=== PATIENT | female | born 1945 | race Caucasian/White ===

== ENCOUNTER 2025-01-03 13:59 | Emergency (ER) | payer OTHER, SELFPAY ==
--- NOTE | ~2025-01-03 | CT_ITS ---
CLINICAL HISTORY: Fall, left-sided chest pain, bruise, R O rib fract CT chest without contrast Comparison: None Findings: Lung suárez are clear without acute infiltrates. No significant mediastinal adenopathy. No significant free pleural fluid. Scattered old rib fractures are identified. No acute focal bony abnormalities. Small hiatal hernia noted. Impression: No acute processes This document has been electronically signed by: Shahab Solano MD on 01/03/2025 19:54:46
--- NOTE | ~2025-01-03 | XR_ITS ---
EXAMINATION: XR CHEST 2 VIEWS HISTORY: trauma COMPARISON: There are no prior studies for comparison. FINDINGS: PA and lateral views of the chest are submitted. The lungs are expanded and clear. There is no pleural effusion, pneumothorax, or pulmonary vascular congestion. The heart is normal in size. There is degenerative disc disease of the spine. There are surgical clips in the right upper quadrant. XR/XR chest 2V IMPRESSION: Clear lungs. Electronically signed by: Devendra Lo MD 01/03/2025 02:52 PM EDT
--- NOTE | ~2025-01-03 | CT_ITS ---
CLINICAL HISTORY: trauma, loss of dexteriry CT head without contrast Comparison: None Findings: No intra-axial mass, midline shift, hydrocephalus, or acute hemorrhage. Mild diffuse cerebral volume loss. Mild degree of patchy low-density within the periventricular and subcortical white matter. Chronic bilateral cerebellar infarcts. There is no sinus or mastoid fluid. The orbits are within normal limits. There is no acute fracture. IMPRESSION: 1. No acute intracranial findings. This document has been electronically signed by: Zainab Raines MD on 01/03/2025 17:38:28
[2025-01-03 14:08] VITALS: BP 137/63; PULSE 64; RESP 18; TEMP 36.9; O2SAT 98; BMI 22.9
--- NOTE | 2025-01-03 14:15 | ECG_ITS ---
Test Reason : pain Blood Pressure : */* mmHG Vent. Rate : 69 BPM Atrial Rate : 69 BPM P-R Int : 168 ms QRS Dur : 74 ms QT Int : 408 ms P-R-T Axes : 48 -18 15 degrees QTcB Int : 437 ms Normal sinus rhythm Normal ECG No previous ECGs available Referred By: Aj Ho Electronically Signed By: FRANK HERRERA MD
--- NOTE | 2025-01-03 14:18 | ED.GENADULT ---
HPI - General Adult General Chief complaint: Fall Stated complaint: fall Time Seen by Provider: 01/03/25 17:59 Source: patient Mode of arrival: ambulatory Limitations: no limitations History of Present Illness ED Provider: Dr. Miguel Artis HPI narrative: 79-year-old female with a history of stroke, hypertension, hyperlipidemia who presents emergency department for evaluation of injuries from a fall that occurred 2 days prior. The patient states she got up in the middle of the night to urinate. She states that she is uncoordinated since her stroke and she tripped and fell. She states she landed on her left chest but did not hit her head or pass out. She states she was able to get up and try to walk to the bathroom but fell a 2nd time and then was incontinent of urine. The patient states she did have a headache after the fall. She also noted she has new incoordination of her upper extremities since the fall. She states that she dropped her phone multiple times. She had difficulty tying her shoes and buttoning her pants. She states that she has been having a dull ache in her left chest since the fall. She states this area is bruised. The pain is worse if she pushes on her chest or twists but does not change with breathing. She denied shortness of breath or dyspnea on exertion. She denied any neck pain, weakness or numbness of her upper extremities. She denied fever, chills, nausea, vomiting, diarrhea, frequency, dysuria or urgency. Related Data Allergies Allergy/AdvReac Type Severity Reaction Status Date / Time amoxicillin Allergy Rash Verified 01/03/25 14:12 [facility] Social History Social History Smoked in Last 30 Days: No Use of substances other than those prescribed or required for medical reasons: No Physical Exam ED Vital Signs: Vital Signs - 24 hr 01/03/25 14:08 01/03/25 17:29 01/03/25 18:22 Temperature 98.4 F 97.9 F 98.0 F Pulse Rate 64 65 60 Respiratory Rate 18 13 16 Blood Pressure 137/63 153/60 H 134/59 L Pulse Oximetry 98 97 94 Oxygen Delivery Method Room Air Room Air Room Air BMI result Body Mass Index 22.9 Course Course Course Narrative: RME, this is a rapid medical exam performed by Srinivas Ho please refer to primary provider for complete H&P- 79-year-old female presents for evaluation after a fall and happened 2 days ago. Patient reports that she got up with urinary urgency and was trying to bellamy to the bathroom when she fell onto the ground. Again, this was 2 days ago in the morning. She denies hitting her head and denies headache. She complains of chest pain with bruising to her entire chest. She also reports that she has had a loss of dexterity in both of her hands since the fall. She has difficulty with intricate details including ?hooking my bra, putting an earrings, and tying my shoes. ? On exam, strength and neuro are intact, NIH stroke score of 0. Plan for EKG, labs, chest x-ray, in his CT scan of the brain. The patient is on aspirin but no anticoagulation Medical Decision Making Medical Decision Making MDM Narrative: 79-year-old female with a history of stroke, hypertension, hyperlipidemia who presents emergency department for evaluation of injuries from a fall that occurred 2 days prior. The patient states she got up in the middle of the night to urinate. She states that she is uncoordinated since her stroke and she tripped and fell. She states she landed on her left chest but did not hit her head or pass out. She states she was able to get up and try to walk to the bathroom but fell a 2nd time and then was incontinent of urine. The patient states she did have a headache after the fall. She also noted she has new incoordination of her upper extremities since the fall. She states that she dropped her phone multiple times. She had difficulty tying her shoes and buttoning her pants. She states that she has been having a dull ache in her left chest since the fall. She states this area is bruised. The pain is worse if she pushes on her chest or twists but does not change with breathing. She denied shortness of breath or dyspnea on exertion. She denied any neck pain, weakness or numbness of her upper extremities. She denied fever, chills, nausea, vomiting, diarrhea, frequency, dysuria or urgency. Vital signs were normal. Patient's neurologic exam was normal with good qcczrh-fi-noza-to-finger, normal rapid finger movement. Patient did have ecchymosis to her left anterior chest with tenderness with palpation of this area. Differential diagnosis: ?Includes but is not limited to skull fracture, intracranial bleed, stroke, concussion, chest wall contusion, rib fractures, rhabdomyolysis, electrolyte abnormalities, anemia Course: 18:59 My independent interpretation patient's laboratory evaluation is as follows: CBC was normal. Chloride elevated 115, bicarb low 20, anion gap low 11, BUN elevated 19 with a normal creatinine of 0.97. First troponin was elevated at 72.8, 3 hour repeat troponin was unchanged at 71.1. CT scan of the brain revealed no acute findings however the patient does have mild diffuse cerebellar volume loss with within the periventricular and subcortical white matter. She also has chronic bilateral cerebellar infarcts-these might explain the patient's fall since she may have balance difficulties but I am not sure if this explains her new upper extremity symptoms. Chest x-ray revealed no acute findings Given her left chest wall ecchymosis tenderness and chest pain concerned that the patient may have nondisplaced rib fractures therefore I did order a CT scan of the chest without IV contrast. I also added a CPK of the patient's labs to evaluate for possible rhabdomyolysis 21:42 CT chest revealed no acute fractures which is reassuring. CPK was not elevated which is reassuring. I did discuss this with the patient. The patient was given Tylenol 975 mg orally for pain. She was given printed and verbal instructions and discharged home. Admission/Observation Consideration of admission/observation: Escalation of care including admission/observation considered (Yes) Lab Data MDM Lab Attestation statement: I reviewed the patient's lab results. 01/03/25 14:24 01/03/25 14:24 Labs: Lab Results 01/03/25 01/03/25 Range/Units 14:24 17:41 WBC 6.4 (4.8-10.8) X10*3/uL RBC 4.42 (4.20-5.50) X10*6/uL Hgb 12.8 (12.0-16.0) g/dl Hct 37.8 (37.0-47.0) % MCV 85.5 (80.0-98.0) fL MCH 29.0 (27.0-33.0) pg MCHC 33.9 (31.0-35.0) g/dl RDW 13.0 (11.0-16.0) % Plt Count 211 (160-400) X10*3/uL MPV 9.7 (9.4-12.3) fL Immature Gran % (Auto) 0.3 (0.0-0.4) % Neut % (Auto) 66.2 (45-73) % Lymph % (Auto) 19.6 L (20-40) % Webster % (Auto) 11.0 (2-11) % Eos % (Auto) 2.3 (0-4) % Baso % (Auto) 0.6 (0-2) % Lymph # (Auto) 1.3 (1.2-4.9) X10*3/uL Webster # (Auto) 0.7 (0.1-1.2) X10*3/uL Eos # (Auto) 0.2 (0.0-0.4) X10*3/uL Baso # (Auto) 0.0 (0.0-0.2) X10*3/uL Abs Immat Gran (auto) 0.02 (0.00-0.03) X10*3/uL Absolute Neuts (auto) 4.2 (2.0-8.3) x10*3/uL Absolute Nucleated RBC 0.000 (0.0-0.012) X10*3/uL Nucleated RBC % (auto) 0.0 (0.0-0.2) /100WBC Sodium 142 (135-145) mmol/L Potassium 4.2 (3.3-5.1) mmol/L Chloride 115 H (96-108) mmol/L Carbon Dioxide 20 L (22-29) mmol/L Anion Gap 11 L (12-20) BUN 19 H (9-16) mg/dL Creatinine 0.97 (0.5-1.4) mg/dL Estim Creat Clear Calc 30.9 Estimated GFR 55 Random Glucose 88 (60-115) mg/dL Calcium 9.0 (8.4-10.2) mg/dL Total Bilirubin 0.6 (0.0-1.0) mg/dL AST 27 (5-31) U/L ALT 30 (0-31) U/L Alkaline Phosphatase 86 (39-117) U/L Total Creatine Kinase 108 (26-140) U/L Troponin I High Sens 72.8 H* 71.1 H* (<3.5-17.0) ng/L Total Protein 6.6 (6.5-8.0) g/dL Albumin 4.0 (3.5-5.0) g/dL Lipase 65 (8-78) U/L Independent Interpretation I performed an independent interpretation of an: EKG and Plain X-Ray Interpretation: My independent interpretation patient's 12 EKG done at 14:15 hours is as follows: Normal sinus rhythm with a rate of 69, normal MI interval, QRS duration QTC interval, no ST segment elevation, no ST segment depression, no PACs, no PVCs, no significant T-wave abnormalities. There is no old EKG for comparison My independent interpretation of the patient's chest x-ray is as follows: No acute findings, no pneumothorax, no hemothorax Radiology Impression Radiologist Impression: XR chest 2V IMPRESSION: Clear lungs. Electronically signed by: Devendra Lo MD 01/03/2025 02:[address] head without contrast Comparison: None Findings: No intra-axial mass, midline shift, hydrocephalus, or acute hemorrhage. Mild diffuse cerebral volume loss. Mild degree of patchy low-density within the periventricular and subcortical white matter. Chronic bilateral cerebellar infarcts. There is no sinus or mastoid fluid. The orbits are within normal limits. There is no acute fracture. IMPRESSION: 1. No acute intracranial findings. This document has been electronically signed by: Zainab Raines MD on 01/03/2025 17:38:28 CLINICAL HISTORY: Fall, left-sided chest pain, bruise, R O rib fract CT chest without contrast Comparison: None Findings: Lung suárez are clear without acute infiltrates. No significant mediastinal adenopathy. No significant free pleural fluid. Scattered old rib fractures are identified. No acute focal bony abnormalities. Small hiatal hernia noted. Impression: No acute processes This document has been electronically signed by: Shahab Solano MD on 01/03/2025 19:54:46 Chronic Conditions Patient?s care impacted by: Hypertension and Other (Hyperlipidemia) Discharge Plan Discharge Clinical Impression: Fall, Concussion, Contusion of left chest wall Patient Disposition: Home, Self-Care Instructions: Concussion (ED), Chest Contusion (ED) Additional Instructions: The CT scan of your brain did not reveal any bleeding of the brain or new injuries. You do have evidence of old strokes in your cerebellar regions (the balance mechanism of your brain) which may explain why you lost your balance and fell. The chest x-ray and CT scan were normal and there was no rib fractures, injuries to lung or other significant abnormalities noted by the radiologist which is reassuring. You did have an elevated high sensitive troponin I (this can sometimes be a marker of heart damage) however your repeat 2 hour troponin was unchanged suggesting that you did not have a heart attack or significant injury to your heart from your fall. Continue taking medications as prescribed. Take Tylenol (acetaminophen) 500 mg pills, 2 pills every 6 hours as needed for pain or fever. Follow-up with your doctor in 2 days. Please return to the emergency department if your symptoms get worse or if you develop any symptoms that are concerning to you. Print Language: Greek
[2025-01-03 14:28] LABS: MANUAL DIFF FLAG NO
[2025-01-03 14:31] LABS: Basophils Percent Auto 0.6 % (0-2); Eosinophils Absolute Auto 0.2 X10*3/uL (0.0-0.4); Eosinophils Percent Auto 2.3 % (0-4); Hematocrit 37.8 % (37.0-47.0); Hemoglobin 12.8 g/dl (12.0-16.0); Imm Gran Abs Auto 0.02 X10*3/uL (0.00-0.03); Imm Gran Pct Auto 0.3 % (0.0-0.4); Lymphocytes Absolute Auto 1.3 X10*3/uL (1.2-4.9); Lymphocytes Percent Auto 19.6 % (20-40); Mean Corpuscular HGB Conc 33.9 g/dl (31.0-35.0); Mean Corpuscular Volume 85.5 fL (80.0-98.0); Mean Platelet Volume 9.7 fL (9.4-12.3); Monocytes Absolute Auto 0.7 X10*3/uL (0.1-1.2); Neutrophils Absolute Auto 4.2 x10*3/uL (2.0-8.3); Neutrophils Percent Auto 66.2 % (45-73); Platelet Count 211 X10*3/uL (160-400); Red Blood Count 4.42 X10*6/uL (4.20-5.50); White Blood Count 6.4 X10*3/uL (4.8-10.8)
[2025-01-03 14:54] LABS: Alanine Aminotransferase 30 U/L (0-31); Anion Gap 11 (12-20); Aspartate Amino Transferase 27 U/L (5-31); Bilirubin Total 0.6 mg/dL (0.0-1.0); Blood Urea Nitrogen 19 mg/dL (9-16); Carbon Dioxide 20 mmol/L (22-29); Chloride 115 mmol/L (96-108); Creatinine Clr Calc Pharmacy 30.9; Estimated Glomerular Filt Rate 55; Glucose Random 88 mg/dL (60-115); Lipase 65 U/L (8-78); Potassium 4.2 mmol/L (3.3-5.1); Sodium 142 mmol/L (135-145); Total Protein 6.6 g/dL (6.5-8.0)
[2025-01-03 14:58] LABS: Troponin-I High Sensitivity 72.8 ng/L (<3.5-17.0)
[2025-01-03 15:52] LABS: Alkaline Phosphatase 86 U/L (39-117)
[2025-01-03 17:29] VITALS: BP 153/60; PULSE 65; RESP 13; TEMP 36.6; O2SAT 97
[2025-01-03 18:16] LABS: Troponin-I High Sensitivity 71.1 ng/L (<3.5-17.0)
[2025-01-03 18:22] VITALS: BP 134/59; PULSE 60; RESP 16; TEMP 36.7; O2SAT 94
[2025-01-03] MEDS: Acetaminophen 325 MG TABLET 975 MG PO (21:50)
[2025-01-03 21:56] VITALS: BP 146/80; PULSE 82; RESP 18; TEMP 37.2; O2SAT 96
--- OUTSIDE RECORDS SUMMARY | 2025-01-03 22:08 | XMS_ITS | Patient Health Record ---
Author Organization [facility] Address [address] [address] Care Team Providers Care General Activities Therapist Name Role Phone RANDALL MORGAN Primary Care Provider Unavailab Loli Uriostegui Unavailable [phone] Allergies No Known Allergies Reason For Referral No Information Medications Medication SIG (Take, Route, Frequency, Duration) Notes Start Date End Date Status Vitamin C 1000 MG 1 tablet Orally Once a day Active Biotin 2500 MCG 1 tablet Orally Twic e a day Active Escitalopram Oxalate 20 MG TAKE 1 TABLET BY MOUTH EVERY DAY Oral for 90 Active Turmeric 500 MG as directed Orally Active Vitamin D3 25 MCG (1000 UT) 1 tablet Ora lly Once a day Active Multi-Vitamin Daily - 1 tablet Orally On ce a day Active Vitamin B12 Active Lumigan Active Atorvastatin Calcium 80 MG 1 tablet Oral ly Once a day Active Aspirin Adult Low Dose 81 MG 1 tablet Orally Once a day Active hydrALAZINE HCl 10 MG TAKE 2 TABLETS BY MOUTH THREE TIMES DAILY WITH FOOD Oral for 90 Days Active Levoxyl 75 MCG 1 tablet in the morn ing on an empty stomach Orally Once a day for -3 days 12/22/2011 Active Gemtesa 75 MG 1 tablet Orally Once a day for 30 day(s) Active dilTIAZem HCl ER 240 MG Oral for 30 Days Active Social History Tobacco Use: Social History Observation Description Date Details (start date - stop date) Former Smoker NA - NA Tobacco use other than smoking: Question Answer Notes Are you an other tobacco user? No AUDIT-C (Standard) Question Answer Notes Did you have a drink contain ing alcohol in the past year? Yes How often did you have six o r more drinks on one occasion in the past year? Never (0 point) How many drinks did you have on a typical day when you were drinking in the past year? 1 or 2 drinks (0 point) How often did you have a dri nk containing alcohol in the past year? Monthly or less (1 point) Points 1 Interpretation Negative Tobacco Control (Standard) Question Answer Notes Tobacco use: Former smoker How long has it been since you last smoked? Grea ter than 10 years Problems Problem Type SNOMED Code ICD Code Onset Dates Problem Status W/U Status Risk Notes Problem Postmenopausal atrophic vaginitis (74040283) Postmenopausal atrophic vaginitis (N95.2) Active confirmed Problem Mastodynia (55567359) Mastodynia (N64.4) Active confirmed Problem Hypothyroidism (90705022) Unspecified hypothyroidism (244.9) Active confirmed Major Problem Hyperlipidemia (54077352) Other and unspecified hyperlipidemia (272.4) Active confirmed Major Problem Obesity (019183490) Obesity, unspecified (278.00) Active confirmed Major Problem Depressive disorder (04552052) Depressive disorder, not elsewhere classified (311) Active confirmed Major Problem Essential hypertension (41667394) Unspecified essential hypertension (401.9) Active confirmed Major Problem Esophageal reflux (176761988) Esophageal reflux (530.81) Active confirmed Major Problem Menopausal symptom (13235218) Symptomatic menopausal or female climacteric states (627.2) Active confirmed Major Vital Signs Temperature 97.9 degrees Fahrenheit 07/30/2024 Blood pressure diastolic 70 mm Hg 07/30/2024 Height 59 in 07/30/2024 Blood pressure systolic 140 mm Hg 07/30/2024 Weight 115 lbs 07/30/2024 BMI 23.22 kg/m2 07/30/2024 Encounters Encounter Location Date Provider Diagnosis [facility] [employer] Marco Vasco [facility] [place] [address] [place] [address] 07/30/2024 Loli Sanchez Encounter for gynecological examination (general) (routine) without abnormal findings Z01.419 ; Encounter for screening mammogram for malignant neoplasm of breast Z12.31 ; Other specified disorders of bone density and structure, multiple sites M85.89 and Postmenopausal atrophic vaginitis N95.2 [facility] [place] [address] [place] [address] 08/20/2024 Loli Sanchez Disorder of bone density and structure, unspecified M85.9 Assessments Encounter Date Diagnosis (ICD Code) Assessment Notes Treatment Notes Treatment Clinical Notes Section Notes 07/30/2024 Encounter for gynecological examination (general) (routine) without abnormal findings (ICD-10 - Z01.419) NO MORE PAP TESTS. 08/20/2024 Disorder of bone density and structure, unspecified (ICD-10 - M85.9) 07/30/2024 Encounter for screening mammogram for malignant neoplasm of breast (ICD-10 - Z12.31) REGULAR MAMMOGRAMS AND SBE'S WERE RECOMMENDED. 07/30/2024 Other specified disorders of bone density and structure, multiple sites (ICD-10 - M85.89) DISCUSSED HER LAST BMD RESULTS AND OSTEOPENIA AND ITS IMPACT ON HER HEALTH. ADEQUATE CALCIUM AND VIT D. WEIGHT BEARING EXERCISES. REPEAT BMD IN 2023. 07/30/2024 Postmenopausal atrophic vaginitis (ICD-10 - N95.2) DISCUSSED FINDINGS, DX AND TX OPTIONS. PAT IS ASYMPTOMATIC. Plan Of Treatment Pending Test Test Name Order Date MAMMOGRAM, SCREENING 05/05/2021 MAMMOGRAM, SCREENING 05/06/2022 MAMMOGRAM, SCREENING 07/30/2024 MAMMOGRAM, SCREENING 07/21/2023 MAMMOGRAM, SCREENING 09/01/2015 THIN PREP,HPV,SOTERO IF HPV+ (>29YR)(SCRN) 09/09/2017 BONE DENSITY 05/06/2022 BONE DENSITY 07/21/2023 BONE DENSITY 07/30/2024 MM Digital Mammo Screening 04/21/2023 MM Digital Mammo Screening 07/21/2023 MM Digital Mammo Screening 05/05/2021 MM Digital Mammo Screening 05/06/2022 MM Digital Mammo Screening 07/30/2024 [id number] 08/20/2024 CBC With Differential/Platelet-[id number] PTH, Intact-[id number] 08/20/2024 Vitamin D, 76-[id number] 08/20/2024 Comp. Metabolic Panel [id number] 2023 Next Appt Details Provider Name:Loli Washington jeanmarie, 08/01/2025 10:20:00 AM, [address] [facility], [address], [place], [address], Insurance Providers Payer Name Payer Address Payer Phone Subscriber Number Group Number Insured Name Patient Relationship to Insured Coverage Start Date Coverage End Date MEDICARE [address]JACKELIN JESUS [id number] JAKUB COLON Self - patient is the insured [facility] [address] [place] [address] [id number] JAKUB COLON Self - patient is the insured Medical (General) History Medical History History ICD Code Acute bronchitis, unspecified J20.9 Cough R05 Hypertrophy of nasal turbinates J34.3 Acute upper respiratory infection, unspe cified J06.9 Other viral agents as the cause of disea ses classified elsewhere B97.89 Allergic rhinitis, unspecified J30.9 Other contact with and (suspected) expos ures hazardous to health Z77.9 Essential (primary) hypertension I10 Menopausal and female climacteric states N95.1 Major depressive disorder, single episod e, unspecified F32.9 Gastro-esophageal reflux disease without esophagitis K21.9 Other hyperlipidemia E78.4 Hypothyroidism, unspecified E03.9 Other obesity E66.8 Postmenopausal atrophic vaginitis N95.2 Myalgia M79.1 Disorder of bone density and structure, unspecified M85.9 Other specified disorders of bone densit y and structure, multiple sites M85.89 Surgical History Surgery Date(Month/Year) Bilateral Tubal Ligation Bladder Sling Breast Reduction Cholecystectomy Colonoscopy Left Lumpectomy, Benign [place] Teeth Hospitalization History Reason Date(Month/Year) See Surgical Hx 3 Vaginal Deliveries
[2025-01-03 22:11] VITALS: BP 146/80; PULSE 82; RESP 18; TEMP 37.2; O2SAT 96
== END 2025-01-03 22:11 | disposition home or self-care (01) ==
LOC: HO.ED 22:06
PROVIDERS: Physician Assistant; Emergency Provider Emergency Medicine Emergency Medical Services; PCP Family Medicine
DX: R51.9 Headache, unspecified (principal); S06.0XAA Concussion with loss of consciousness status unknown, initial encounter; W18.30XA Fall on same level, unspecified, initial encounter; Y93.89 Activity, other specified; Y92.009 Unspecified place in unspecified non-institutional (private) residence as the place of occurrence of the external cause; Y99.9 Unspecified external cause status; R27.8 Other lack of coordination; Z86.73 Personal history of transient ischemic attack (TIA), and cerebral infarction without residual deficits
CPT/HCPCS: 36415; 70450; 71046; 71250; 80053; 82550; 83690; 84484; 85025; 93005; 99284; 99285

== ENCOUNTER → 2025-01-03 14:15 | Outpatient (BNV) | payer SELFPAY | PROVIDERS: PCP Family Medicine; Visit Provider Radiology Diagnostic Radiology | DX: R07.89 Other chest pain (principal); S09.90XA Unspecified injury of head, initial encounter; M54.2 Cervicalgia | CPT/HCPCS: 70450; 71046; 71250 ==

== ENCOUNTER → 2025-01-03 14:15 | Outpatient (BNV) | payer SELFPAY | PROVIDERS: Emergency Provider Emergency Medicine Emergency Medical Services; PCP Family Medicine; Visit Provider Internal Medicine Cardiovascular Disease | DX: R07.9 Chest pain, unspecified (principal) | CPT/HCPCS: 93010 ==

== ENCOUNTER 2025-02-12 15:21 | Outpatient (RCR) | payer MEDICARE, OTHER, SELFPAY | END 2025-04-02 09:46 | disposition home or self-care (01) | LOC: HO.OT 15:21 | PROVIDERS: PCP Family Medicine; Visit Provider Family Medicine | DX: R27.8 Other lack of coordination (principal) | CPT/HCPCS: 29125; 97110; 97112; 97165; 97530; 97760 ==

== ENCOUNTER 2025-02-27 10:52 | Outpatient (AMB) | payer MEDICARE, OTHER, SELFPAY ==
--- NOTE | 2025-02-27 11:07 | A.OFFVIS_ITS ---
Vital Signs 02/27/25 11:09 Height 4 ft 11 in BP 114/63 Blood Pressure Location Rt brachial Position Sitting Pulse 56 Intake Visit Reasons: 6m/ stroke Allergies amoxicillin Allergy (Verified 02/27/25 11:27) Rash Medication List - Last Reconciled 02/27/25 by Uzma Xavier CNP amlodipine 5 mg PO DAILY aspirin 81 mg PO DAILY atorvastatin 80 mg PO DAILY bimatoprost 0.01% (Lumigan) 1 drp ophthalmic (eye) BEDTIME cholecalciferol (vitamin D3) 25 mcg PO DAILY escitalopram oxalate 20 mg PO DAILY hydralazine 25 mg See Protocol PO TID levothyroxine 75 mcg PO DAILY lorazepam 0.5 mg PO DAILY PRN multivitamin 1 tab PO DAILY vibegron (Gemtesa) 75 mg PO DAILY HPI Comments Details: 79-year-old RH woman with hypertension and hyperlipidemia who went to [facility] in 09/12/2023 with 2-day history of drooping of right angle of mouth. Her brother thought her speech was slurred at times along with right facial droop. She was unaware of it and thought her speech was fine. She did not have any limb weakness or other symptoms. 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 MRI showed an acute infarct in the wheeler radiata on the left and a smaller acute infarct in the right wheeler radiata in the parietal region. 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 She slipped and fell on 01/01/2025 when she got out of bed and was trying to put her slippers on. She fell forward on left side and had some bruising to left upper arm. She also had some chest tightness afterward that has gotten better with PT, although still a little sore at times. She did not hit her head or pass out. No dizziness or lightheadness. She went to [facility] on 01/03/[address] scan which did not show any acute findings. She had some trouble tying her shoes after the fall, but that has since resolved. She is having some numbness to left 4th and 5th fingers and says they feel weird. Having trouble with coordination and fine motor tasks with left hand. Unable to put in ear rings and had to get clip on ear rings, which she also has trouble using. Completed OT and doing some home exercises. Balance has been okay, no further falls. Speech and swallowing are okay. No headaches. No neck pain. Sleep was okay. [facility] Medical History (Updated 02/27/25 @ 11:12 by Uzma Xavier CNP) Depression HLD (hyperlipidemia) Cerebral microvascular disease Stroke Glaucoma Dysarthria Cerebrovascular accident Hypertension Surgical History (Updated 01/28/25 @ 15:18 by Dennise Samuels CNA) Hx of cardiac cath Hx of breast reduction, elective Family History (System 01/28/25 @ 15:18 by Dennise Samuels CNA) Father Kidney disease Mother HTN (hypertension) Heart disease Maternal Grandfather Heart disease Social History (System 01/28/25 @ 15:18 by Dennise Samuels CNA) Household Members: None Household Members Other:: dog Housing: House Do you presently have visiting nurse or other home services: No Alcohol intake: current Alcohol intake frequency: holidays/special occasions only Patient Tobacco Use Status: Former Tobacco user Substance Use Type: Marijuana service: No Review of Systems Const Denies chills, Denies daytime sleepiness, Denies difficulty sleeping, Denies fa tigue, Denies fever(s), Reports frequent falls (one fall in last 6 months on 01/01/2025), Denies headache(s), Denies increased appetite, Denies poor appetite, Denies snoring, Denies weakness, Denies weight gain and Denies weight loss Eyes Denies loss of vision ENT Denies vertigo, Denies dizziness, Denies headache(s) and Denies neck pain Card Denies chest pain at rest, Denies chest pain with activity, Denies syncope, Denies leg edema, Denies palpitations, Denies dyspnea and Denies dyspnea on exertion Resp Denies cough, Denies dyspnea, Denies dyspnea on exertion and Denies snoring GI Denies abdominal pain, Denies constipation, Denies heartburn, Denies diarrhea and Denies nausea Denies urinary frequency, Denies urinary incontinence and Denies urinary urgency Musc Denies abnormal gait, Reports back pain, Denies myalgias, Denies arthralgias, Denies neck pain, Reports numbness, Denies stiffness and Denies tingling Neuro Denies abnormal gait, Denies vertigo, Denies dizziness, Denies syncope, Reports frequent falls (one fall in last 6 months on 01/01/2025), Denies headache(s), Denies lack of coordination, Denies loss of vision, Denies memory loss, Reports numbness, Denies Other visual disturbances, Denies restless legs, Denies seizure-like activity, Denies tingling, Reports paresthesias, Denies tremor(s) and Denies weakness Psych Reports anxiety, Reports depression, Denies memory loss, Denies visual hallucinations and Denies hallucinations Endo Denies fatigue and Denies palpitations Physical Exam Vital Signs: Last Vital Signs Pulse 56 02/27/25 11:09 BP 114/63 02/27/25 11:09 Const Other: General Appearance:? normal, in no acute distress. Heart:? S1, S2 normal, no murmurs. Lungs:? clear anteriorly and posteriorly. Musculoskeletal:? normal. Extremities:? no edema. Psych:? alert, oriented, cognitive function intact, cooperative with exam. Neuro Other: Abnormal Neurological Findings:?Droop of the right angle of the mouth. 5-/5 L deltoid. 5-/5 L finger spread. Mental Status: alert and oriented X 3. Normal attention, orientation, memory, and affect. Cranial Nerves: Pupils are equal, round, and reactive to light. External ocular muscles are intact. Visual suárez are full, no ptosis. Face is asymmetrical, right angle of mouth droop, but no facial weakness on smiling or baring teeth. Facial sensations are normal. Tongue protrudes in midline. Palate elevates symmetrically. Shoulder shrugging is normal Motor Examination: Normal muscle tone, bulk and strength. No atrophy or fasciculations. No drift of the extended upper extremities. DTR 2+. Plantars are flexor. Straight Leg Raisin degrees. Sensory Exam: Normal light touch, temperature, pinprick, vibration, and joint- position sensations. Rhomberg sign is absent. Coordination: No ataxia. No titubation. Kjzjjo-nb-akuy, yeru-azaw-tady test, and rapid alternating movements were normal. Gait Exam: Within normal limits. Cerebellar Signs: Udlnra-uk-pgcj and eapk-sg-bfyi is normal. No dysdiadochokinesia. Extrapyramidal System: No tremor, rigidity with normal facial expressions. No bradykinesia. No bradyphrenia. Normal arm swing and posture. No propulsion or retropulsion. Speech: Normal. No dysphasia or dysarthria. Results Reviewed Results Reviewed: 08/2023 CTA of head/neck: Chronic changes without acute infarct with old left vertebtral occlusion. 08/2023 MRI brain: Acute infarct in the wheeler radiata on the left and a smaller acute infarct in the right wheeler radiata in the parietal region. 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 Extensive white matter disease with multiple small vessel strokes including white matter, brain stem, and cerebellum. [place] [id number] CT Scan Report Signed Patient: Johanna Andujar MR#: [id number] : 1945 Acct:[id number] Age/Sex: 79 / F ADM Date: 01/03/25 Loc: HO.ED Attending Dr: Ordering Physician: Aj Ho Date of Service: 01/03/25 Procedure(s): CT head/brain wo IV con Accession Number(s): [id number] cc: Rosa Garcia MD; Aj Ho~ Report Number: [id number]: Total DLP = 579.00 mGy-cm CLINICAL HISTORY: trauma, loss of dexteriry CT head without contrast Comparison: None Findings: No intra-axial mass, midline shift, hydrocephalus, or acute hemorrhage. Mild diffuse cerebral volume loss. Mild degree of patchy low-density within the periventricular and subcortical white matter. Chronic bilateral cerebellar infarcts. There is no sinus or mastoid fluid. The orbits are within normal limits. There is no acute fracture. IMPRESSION: 1. No acute intracranial findings. This document has been electronically signed by: Zainab Raines MD on 01/03/2025 17:38:28 Assessment & Plan Assessment & Plan (1) Stroke: Code(s): I63.9 - Cerebral infarction, unspecified Category: Medical Qualifiers: CVA mechanism: unspecified Qualified Code(s): I63.9 - Cerebral infarction, unspecified Plan: Control blood pressure. Continue low dose aspirin. Continue statin. Coding Level of Care Code Est Pt Level 4 (67662) Diagnoses Cerebrovascular accident (CVA), unspecified mechanism I63.9 CVA mechanism: unspecified
[2025-02-27 11:09] VITALS: BP 114/63; PULSE 56
--- OUTSIDE RECORDS SUMMARY | 2025-02-27 12:00 | XMS_ITS | Patient Health Record ---
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 Name Role Phone MORGAN PEREIRA Primary Care Provider UnavailLoli Gibson Unavailable [phone] Allergies No Known Allergies Reason For Referral No Information Medications Medication SIG (Take, Route, Frequency, Duration) Notes Start Date End Date Status Vitamin C 1000 MG 1 tablet Orally Once a day Active Biotin 2500 MCG 1 tablet Orally Twic e a day Active Escitalopram Oxalate 20 MG TAKE 1 TABLET BY MOUTH EVERY DAY Oral; Duration: 90 Active Turmeric 500 MG as directed [...] BY MOUTH THREE TIMES DAILY WITH FOOD Oral; Duration: 90 Days Active Levoxyl 75 MCG 1 tablet in the morn ing on an empty stomach Orally Once a day; Duration: -3 days 12/22/2011 Active Gemtesa 75 MG 1 tablet Orally Once a day; Duration: 30 day(s) Active dilTIAZem HCl ER 240 MG Oral; Duration: 30 Days Active Social History Tobacco Use: [...] Status Risk Notes Problem Postmenopausal atrophic vaginitis (66120508) Postmenopausal atrophic vaginitis (N95.2) Active confirmed Problem Mastodynia (21088328) Mastodynia (N64.4) Active confirmed Problem Hypothyroidism (20481748) Unspecified hypothyroidism (244.9) Active confirmed Major Problem Hyperlipidemia (41030208) Other and unspecified hyperlipidemia (272.4) Active confirmed Major Problem Obesity (930154774) Obesity, unspecified (278.00) Active confirmed Major Problem Depressive disorder (19445413) Depressive disorder, not elsewhere classified (311) Active confirmed Major Problem Essential hypertension (45582599) Unspecified essential hypertension (401.9) Active confirmed Major Problem Esophageal reflux (227539080) Esophageal reflux (530.81) Active confirmed Major Problem Menopausal symptom (06518522) Symptomatic menopausal or female climacteric states (627.2) Active confirmed Major Vital Signs Temperature 97.9 degrees Fahrenheit 07/30/2024 Blood pressure diastolic 70 mm Hg 07/30/2024 Height 59 in 07/30/2024 Blood pressure systolic 140 mm Hg 07/30/2024 Weight 115 lbs 07/30/2024 BMI 23.22 kg/m2 07/30/2024 Encounters Encounter Location Date Provider Diagnosis [facility] [address] [address] 07/30/2024 Loli Sanchez Encounter for gynecological examination (general) (routine) without abnormal findings Z01.419 ; Encounter for screening mammogram for malignant neoplasm of breast Z12.31 ; Other specified disorders of bone density and structure, multiple sites M85.89 and Postmenopausal atrophic vaginitis N95.2 [facility] [address] [place] [address] 08/20/2024 Loli Sanchez Disorder of bone density [...] Screening 05/06/2022 MM Digital Mammo Screening 07/30/2024 [id number] 08/20/2024 CBC With Differential/Platelet-[id number] PTH, Intact-[id number] 08/20/2024 Vitamin D, 40-[id number] 08/20/2024 Comp. Metabolic Panel [id number] 2023 Next Appt Details Provider Name:Loli murry, 08/01/2025 10:20:00 AM, [address] [facility] [address], [place], [address], Insurance Providers Payer Name Payer Address Payer Phone Subscriber Number Group Number Insured Name Patient Relationship to Insured Coverage Start Date Coverage End Date MEDICARE [id number] JESUS [id number] JAKUB COLON Self - patient is the insured [facility] [address] [place] [address] [phone] [id number] JAKUB COLON Self - patient is [...] Breast Reduction Cholecystectomy Colonoscopy Left Lumpectomy, Benign [place] [facility] Hospitalization History Reason Date(Month/Year) See Surgical Hx 3 Vaginal Deliveries
== END 2025-02-27 11:42 | disposition home or self-care (01) ==
LOC: HO.HSM 10:53
PROVIDERS: PCP Family Medicine; Referring Provider Family Medicine; Visit Provider Registered Nurse
DX: I63.9 Cerebral infarction, unspecified (principal)
CPT/HCPCS: 99214

== ENCOUNTER → 2025-02-27 10:52 | Outpatient (BNVA) | payer MEDICARE, OTHER, SELFPAY | PROVIDERS: PCP Family Medicine; Referring Provider Family Medicine; Visit Provider Registered Nurse | DX: Z86.73 Personal history of transient ischemic attack (TIA), and cerebral infarction without residual deficits (principal); Z79.82 Long term (current) use of aspirin; Z79.899 Other long term (current) drug therapy | CPT/HCPCS: 99212 ==

== ENCOUNTER 2025-03-07 11:00 | Outpatient (RCR) | payer OTHER, SELFPAY | END 2025-04-01 10:44 | disposition home or self-care (01) | LOC: HO.PT 11:00 | PROVIDERS: PCP Family Medicine; Visit Provider Family Medicine | DX: M25.512 Pain in left shoulder (principal); S46.912D Strain of unspecified muscle, fascia and tendon at shoulder and upper arm level, left arm, subsequent encounter; W18.30XD Fall on same level, unspecified, subsequent encounter | CPT/HCPCS: 97110; 97162 ==